=== PATIENT | male | born 1950 | race Caucasian/White ===

== ENCOUNTER 2016-08-31 07:40 | Day surgery (SDC) | payer OTHER, SELFPAY ==
--- NOTE | ~2016-08-31 | OP ---
Record Of Operation [facility] [address] [place]. 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 PROCEDURES: 1. Microdirect laryngoscopy with biopsy. 2. Rigid bronchoscopy. SURGEON: Alycia Dunne M.D. ANESTHESIA: General. COMPLICATIONS: None. COUNTS: All counts correct following the procedure. ESTIMATED BLOOD LOSS: 2 mL. PREOPERATIVE INFORMED CONSENT: We discussed risks and benefits of surgery including but not limited to bleeding, infection, possible loss of airway and , and consent is on the chart. PROCEDURE IN DETAIL: The patient was brought to the operative suite and placed on the operating table in supine position. General endotracheal anesthesia was initiated without incident. The patient's head and neck was cleaned, prepped, and draped in usual sterile fashion. Following this, a Dedo laryngoscope was inserted in the oral cavity. I inspected the oral cavity, oropharynx, hypopharynx, and larynx. The hypopharynx and larynx were clear of any mucosal lesions. The supraglottic larynx was entered and 0-degree Harvey minoo was placed through the laryngoscope used to inspect the subglottic trachea, all of which was noted to be free of disease. There was noted to be an exophytic lesion extending from the midline of the tongue over on the right base of tongue, up onto the right tonsil up to the upper almost to the superior pole of the right tonsil. Multiple biopsies were taken from the right base of the tongue as well as right tonsil that were sent in separate specimen. Specimens were sent in formalin for permanent pathology. Bleeding was controlled using topical Adrenalin on pledgets. The patient was then awakened from anesthesia and taken to the recovery room in stable condition. KILO/DAINLO Alycia Dunne M.D. Record Of Operation [address] [place]. [address] NAME: CESIA SHARMA : 52 STATUS : REG [facility] [place] PAT#: [id number] AGE: 66 ADM/REG DATE : 08/31/16 MR#: [id number] REPORT SERV DATE: 08/31/16 DICTATED BY: AYLCIA DUNNE DATE: 08/31/16 REPORT STATUS : Draft TRANSCRIBED BY: RITESHL DATE: 08/31/16 / [id number] CC: Alexia Choe MD
[~2016-08-31 07:40] MED LIST: MIRALAX POWDER1 PKT PO; NEXIUM40 PO; ZANTAC150 MG
[2016-08-31 08:01] LABS: HEMATOCRIT 44.7 % (40.0-51.0); HEMOGLOBIN 15.5 g/dL (13.6-17.8)
[2016-08-31 08:16] LABS: CALCIUM, SERUM 9.1 MG/DL (8.5-10.4); CHLORIDE, SERUM 104 MMOL/L (96-112); CO2 (CARBON DIOXIDE) 28 MMOL/L (24-34); GFR AFRICAN AMERICAN 73 ML/MIN (>=60); GFR NON AFRICAN AMERICAN 63 ML/MIN (>=60); POTASSIUM, SERUM 4.4 MMOL/L (3.5-5.3); SODIUM, SERUM 139 MMOL/L (135-148)
[2016-08-31 08:18] LABS: BUN (BLOOD UREA NITROGEN) 8 MG/DL (6-23); GLUCOSE, SERUM 90 MG/DL (60-99)
== END 2016-08-31 23:59 | disposition home health service (06) ==
LOC: MSC 07:40
PROVIDERS: Otolaryngology
PROC: 0CBM8ZX Excision of Pharynx, Via Natural or Artificial Opening Endoscopic, Diagnostic (ICD-10-PCS; principal; 2016-08-31 10:00)
DX: C09.9 Malignant neoplasm of tonsil, unspecified (principal); C01 Malignant neoplasm of base of tongue; Z98.890 Other specified postprocedural states; Z87.891 Personal history of nicotine dependence; Z79.899 Other long term (current) drug therapy
CPT/HCPCS: 80048; 85014; 85018; 88305; 88341; 88342; 93005; A9270-GY; J0330; J2250; J2405; J2710; J3010